=== PATIENT | male | born 1930 | race Asian ===

== ENCOUNTER 2022-07-19 06:06 | Inpatient (IN) | payer MEDICARE, OTHER ==
[~2022-07-19] VITALS: Ht 170.2 cm; Wt 81.4 kg
[2022-07-19] VITALS (53 sets, daily range): BP systolic 81–175; BP diastolic 40–87
[2022-07-19 06:30] LABS: BASOPHILS % 0.5 % (0.0-2.0); EOSINOPHILS % 4.7 % (0.0-5.0); HEMATOCRIT. 23.3 % (42.0-52.0); HEMOGLOBIN. 7.9 g/dL (14.0-18.0); LYMPHOCYTES % 29.9 % (20.0-50.0); MEAN CORPUSCULAR HEMOGLOBIN 36.7 pg (28.0-32.0); MEAN CORPUSCULAR VOLUME 108.4 fL (80.0-94.0); MEAN PLATELET VOLUME 6.9 fl (7.4-10.4); MONOCYTES % 8.4 % (2.0-8.0); NEUTROPHILS % 56.5 % (40.0-76.0); PLATELET 54 x1000/uL (130-400); RED BLOOD CELL COUNT 2.15 mill/uL (4.7-6.1); RED CELL DISTRIBUTION WIDTH 16.5 % (11.6-14.6)
[2022-07-19 06:48] LABS: CHLORIDE 110 mEq/L (98-107)
[2022-07-19] MEDS ORDERED: ETOMIDATE 2MG/ML 10ML VIAL IV ONE ×2 (07:45→08:00)
[2022-07-19] MEDS ORDERED: PROPOFOL 10MG/ML 100ML 100 ML IV ONE (07:45)
[2022-07-19] MEDS ORDERED: SUCCINYLCHOLINE CHLORIDE 200MG/10ML IV ONE ×2 (07:45→08:00)
[2022-07-19] MEDS ORDERED: FENTANYL CITRATE/PF 50MCG/ML 2ML VIAL IV ONE (07:45)
[2022-07-19] MEDS ORDERED: TRANEXAMIC ACID 1,000 MG/10 ML IV ONE (08:00)
[2022-07-19] MEDS ORDERED: MANNITOL 20% (20GM/100ML) BAG 500ML PREMIX IV NR (08:00)
[2022-07-19] MEDS ORDERED: NICARDIPINE 100 MG in SODIUM CHLORIDE 0.9% 60 ML IV PRN ×2 (08:15→08:30)
[2022-07-19] MEDS: DEXT 5%/LACTATED RINGERS 1,000 ML IV SCH (08:15)
[2022-07-19 08:51] LABS: INR 1.2; PROTHROMBIN TIME 12.9 sec (9.6-11.0)
[2022-07-19 08:54] LABS: BG BASE EXCESS -3.5 mmol/L (-2.0-2.0); BG DEOXYHEMOGLOBIN 1.9 % (0.0-5.0); BG FRACTION INSPIRED OXYGEN 40; BG HCO3 ACT 21.3 mmol/L (22.0-26.0); BG METHEMOGLOBIN 0.3 % (0.0-1.5); BG OXYGEN SATURATION 98.1 % (92.0-98.5); BG OXYHEMOGLOBIN 96.8 % (94.0-97.0); BG PCO2 36.9 mmHg (35.0-45.0); BG PEEP (cmH2O) 0 cmH2O; BG PH 7.379 (7.350-7.450); BG PO2 149.7 mmHg (75.0-100.0); BG SAMPLE SITE RIGHT RADIAL; BG TOTAL HEMOGLOBIN 8.3 g/dL (12.0-18.0); BG VENT MODE VENT - AC
[2022-07-19] MEDS ORDERED: LEVETIRACETAM 500MG PREMIX 100 ML IV SCH (09:00)
[2022-07-19] MEDS ORDERED: TRANEXAMIC ACID 1,000 MG in SODIUM CHLORIDE 0.9% 100 ML IV NR (09:00)
[2022-07-19] MEDS ORDERED: PIPERACILLIN/TAZ 3.375G PREMIX 50 ML IV SCH (09:15)
[2022-07-19] MEDS ORDERED: ONDANSETRON HCL 4MG/2ML INJ IV PRN (09:15)
[2022-07-19] MEDS ORDERED: LIDOCAINE HCL 2%/EPINEPHRINE 1:100,000 20 ML VIAL INFIL ONE (10:13)
[2022-07-19] MEDS ORDERED: THROMBIN (BOVINE) 5000 UNITS/VIAL TOP ONE (10:13)
[2022-07-19] MEDS ORDERED: BACITRACIN 15GM TUBE TOP ONE (10:13)
[2022-07-19] MEDS ORDERED: GENTAMICIN SULF 40MG/ML 2ML VIAL ONE (10:14)
[2022-07-19] MEDS ORDERED: LIDOCAINE HCL/EPINEPHRINE 1%-EPI 1:100,000 30 ML VIAL INFIL ONE (10:16)
[2022-07-19] MEDS: PIPERACILLIN/TAZOBACTAM 3.375 G in DEXTROSE 5% WATER 50 ML IV SCH ×2 (11:34→21:55)
[2022-07-19] MEDS ORDERED: MORPHINE SULFATE 4 MG/ML CPJ (NOT FOR IM USE) IV PRN (12:15)
[2022-07-19] MEDS ORDERED: NALOXONE HCL 0.4MG/ML VIAL IV PRN (12:15)
[2022-07-19] MEDS ORDERED: ALBUMIN HUMAN 12.5G/250ML (5%) IV ONE ×2 (12:21)
[2022-07-19] MEDS ORDERED: VECURONIUM BROMIDE 10 MG/VIAL IV ONE (12:58)
[2022-07-19] MEDS ORDERED: PROPOFOL 200MG/20ML VIAL IV ONE (12:59)
[2022-07-19] MEDS ORDERED: EPHEDRINE SULFATE 50MG/ML VIAL ONE (13:09)
[2022-07-19] MEDS ORDERED: PHENYLEPHRINE HCL 10 MG/ML 1ML (IV VIAL) IV ONE (13:13)
[2022-07-19] MEDS ORDERED: CEFAZOLIN SODIUM 1000MG/VIAL IV SCH (14:00)
[2022-07-19] MEDS ORDERED: CEFAZOLIN 1000MG PREMIX 50 ML IV SCH (14:00)
[2022-07-19 15:38] LABS: HEMATOCRIT 16.8 % (42.0-52.0); HEMOGLOBIN 5.6 g/dL (14.0-18.0)
[2022-07-19 15:44] LABS: CREATINE KINASE MB FRACTION 3.1 ng/mL (0.5-3.6)
[2022-07-19] MEDS ORDERED: PROPOFOL 10MG/ML 100ML 100 ML IV PRN ×2 (18:45→19:15)
[2022-07-19] MEDS: LEVETIRACETAM 500MG PREMIX 100 ML IV SCH (21:26)
[2022-07-20] VITALS (83 sets, daily range): BP systolic 79–124; BP diastolic 46–69
[2022-07-20] MEDS ORDERED: PHENYLEPHRINE 100 MG in DEXT 5% WATER 240 ML IV PRN (00:45)
[2022-07-20 02:23] LABS: BASOPHILS % 0.6 % (0.0-2.0); EOSINOPHILS % 1.4 % (0.0-5.0); LYMPHOCYTES % 8.4 % (20.0-50.0); MEAN CORPUSCULAR HEMOGLOBIN 34.3 pg (28.0-32.0); MEAN CORPUSCULAR VOLUME 101.3 fL (80.0-94.0); MEAN PLATELET VOLUME 7.7 fl (7.4-10.4); MONOCYTES % 4.8 % (2.0-8.0); NEUTROPHILS % 84.8 % (40.0-76.0); PLATELET 118 x1000/uL (130-400); RED BLOOD CELL COUNT 1.99 mill/uL (4.7-6.1)
[2022-07-20 02:32] LABS: CHLORIDE 110 mEq/L (98-107)
[2022-07-20 02:39] LABS: HEMOGLOBIN. 6.8 g/dL (14.0-18.0)
[2022-07-20 02:40] LABS: HEMATOCRIT. 20.2 % (42.0-52.0)
[2022-07-20 02:41] LABS: INR 1.3; PARTIAL THROMBOPLASTIN TIME 29.7 sec (23.4-31.0); PROTHROMBIN TIME 13.4 sec (9.6-11.0)
[2022-07-20] MEDS ORDERED: DEXT IV ONE (03:45)
[2022-07-20] MEDS ORDERED: POTASSIUM CHLORIDE IV ONE (03:45)
[2022-07-20] MEDS ORDERED: NACL IV ONE (03:45)
[2022-07-20] MEDS ORDERED: KCL 20MEQ/100ML PREMIX 100 ML IV ONE (03:45)
[2022-07-20] MEDS: DEXT 5%/LACTATED RINGERS 1,000 ML IV SCH ×2 (04:38→17:35)
[2022-07-20] MEDS: KCL 20MEQ/100ML PREMIX 100 ML IV SCH ×2 (05:12→08:56)
[2022-07-20] MEDS ORDERED: CEFAZOLIN 1000MG PREMIX 50 ML IV SCH (06:00)
[2022-07-20] MEDS: PIPERACILLIN/TAZOBACTAM 3.375 G in DEXTROSE 5% WATER 50 ML IV SCH (08:56)
[2022-07-20] MEDS: LEVETIRACETAM 500MG PREMIX 100 ML IV SCH (08:56)
[2022-07-20] MEDS ORDERED: MORPHINE SULFATE 250 MG in DEXT 5% WATER 225 ML IV PRN (14:15)
== END 2022-07-20 18:50 | DRG 25 ==
LOC: ER 06:32 → MICUNO 08:24 → ENRESERV 08:29
PROVIDERS: ADMIT Internal Medicine; ATTEND Internal Medicine
PROC: 5A1945Z Respiratory Ventilation, 24-96 Consecutive Hours (ICD-10-PCS; principal; 2022-07-19)
PROC: 0BH17EZ Insertion of Endotracheal Airway into Trachea, Via Natural or Artificial Opening (ICD-10-PCS; 2022-07-19)
PROC: 30233N1 Transfusion of Nonautologous Red Blood Cells into Peripheral Vein, Percutaneous Approach (ICD-10-PCS; 2022-07-19)
PROC: 30233K1 Transfusion of Nonautologous Frozen Plasma into Peripheral Vein, Percutaneous Approach (ICD-10-PCS; 2022-07-19)
PROC: 30233R1 Transfusion of Nonautologous Platelets into Peripheral Vein, Percutaneous Approach (ICD-10-PCS; 2022-07-19)
PROC: 05HY33Z Insertion of Infusion Device into Upper Vein, Percutaneous Approach (ICD-10-PCS; 2022-07-19)
PROC: 00C40ZZ Extirpation of Matter from Intracranial Subdural Space, Open Approach (ICD-10-PCS; 2022-07-19)
PROC: 00H032Z Insertion of Monitoring Device into Brain, Percutaneous Approach (ICD-10-PCS; 2022-07-19)
PROC: 4A103BD Monitoring of Intracranial Pressure, Percutaneous Approach (ICD-10-PCS; 2022-07-19)
PROC: 009430Z Drainage of Intracranial Subdural Space with Drainage Device, Percutaneous Approach (ICD-10-PCS; 2022-07-19)
DX: S06.5X0A Traumatic subdural hemorrhage without loss of consciousness, initial encounter (principal); I21.4 Non-ST elevation (NSTEMI) myocardial infarction; J96.90 Respiratory failure, unspecified, unspecified whether with hypoxia or hypercapnia; D68.9 Coagulation defect, unspecified; N17.9 Acute kidney failure, unspecified; G93.40 Encephalopathy, unspecified; Z66 Do not resuscitate; R40.20 Unspecified coma; I48.91 Unspecified atrial fibrillation; D64.9 Anemia, unspecified; I25.10 Atherosclerotic heart disease of native coronary artery without angina pectoris; D69.6 Thrombocytopenia, unspecified; I11.9 Hypertensive heart disease without heart failure; Z79.01 Long term (current) use of anticoagulants; I25.2 Old myocardial infarction; Z91.81 History of falling; Z95.1 Presence of aortocoronary bypass graft; Z95.5 Presence of coronary angioplasty implant and graft; W01.0XXA Fall on same level from slipping, tripping and stumbling without subsequent striking against object, initial encounter; Y93.89 Activity, other specified; Y92.89 Other specified places as the place of occurrence of the external cause; Y99.8 Other external cause status
CPT/HCPCS: 31500; 36415; 36430; 36573; 36600; 71045; 80053; 82375; 82553; 82805; 83735; 83880; 84484; 85014; 85018; 85025; 86850; 86900; 86920; 86927; 86945; 93005; 93306; 94002; 94003; 99291; C1713; C1725; J0330; J0690; J1580; J1953; J2270; J2370; J2543; J2704; J3480; J3490; J7050; J7060; J7120; P9016; P9017; P9034; P9041; P9035